=== PATIENT | male | born 1970 | race African-American/Black ===

== ENCOUNTER 2019-05-15 14:54 | Emergency (ER) | payer OTHER ==
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
--- NOTE | 2019-05-15 18:21 | RAD REPORT ---
EXAM DESCRIPTION: US - Extrem Venous W Compress Mumtaz - 05/15/2019 6:11 pm CLINICAL HISTORY: Leg pain and swelling COMPARISON: None. TECHNIQUE: Real-time sonographic evaluation of the bilateral lower extremity common femoral, superfi cial femoral, popliteal and posterior tibial veins was performed. FINDINGS: Normal compressibility, flow augmentation, phasic flow and spontaneous flow are identified in the left and right lower extremity common femoral, superficial femoral, popliteal and posterior t ibial veins. No intraluminal filling defects seen. IMPRESSION: No DVT in either lower extremity.
== END 2019-05-15 18:05 | disposition home or self-care (01) ==
LOC: ER 14:54
DX: S16.1XXA Strain of muscle, fascia and tendon at neck level, initial encounter (principal); S46.011A Strain of muscle(s) and tendon(s) of the rotator cuff of right shoulder, initial encounter; V49.9XXA Car occupant (driver) (passenger) injured in unspecified traffic accident, initial encounter
CPT/HCPCS: 72040; 93970; 99283